=== PATIENT | male | born 1965 | race Caucasian/White ===

== ENCOUNTER 2019-10-11 14:00 | Inpatient (IN) | payer OTHER ==
[~2019-10-11] VITALS: Ht 185.4 cm; Wt 75.0 kg
--- NOTE | ~2019-10-11 | CON ---
[address] [address] CONSULTATION Name: COLTON PEACE Room: [address] IN .R.#: [id number] Admission: 10/11/19 Attend Phys: Sienna Beaver Discharge: Date of : 63 Report #: [id number] THIS REPORT FOR: //name// cc: BRYAN Deal No family physician/PCP BRYAN - No family physician/PCP ~ THIS REPORT FOR: //name// CC: [facility] physician/PCP Satinder Turner DATE OF SERVICE: 10/11/2019 HISTORY OF PRESENT ILLNESS: This is a 54-year-old male patient who was seen by me for what he described as speech difficulty, which started yesterday. He also has pretty significant involuntary movements on the left side. He never had this kind of symptoms before. He is relatively healthy. He does smoke. The movements in the hand is more today than it was yesterday. REVIEW OF SYSTEMS: Indicate that this patient is healthy. In fact, he said he has never been into the hospital. He does smoke. He denies any previous history of stroke. His blood pressure is high here. We do not know what his blood pressure has been in the past. Review of systems is otherwise noncontributory. PAST MEDICAL HISTORY: Negative because the patient says that he does not go to the hospital. FAMILY HISTORY: Noncontributory. SOCIAL HISTORY: He smokes. PHYSICAL EXAMINATION: He is alert, responsive, able to follow simple and complex command. His cranial nerve examination appears unremarkable. Neuromuscular examination is symmetrical. There is no meningeal sign. There is no carotid bruit. Blood pressure is high, but he got some labetalol and it is down now. Cardiac and respiratory examination is unremarkable. LABORATORY DATA: Indicate a white count of 9.2. His GFR is 69. IMPRESSION: This is a pretty unusual patient. It is possible that he has undiagnosed hypertension and this is hypertensive encephalopathy. The thing we need to exclude is that this patient does not have a basilar artery problem. They can present with speech difficulty and unusual symptoms. If he does have a basilar artery problem, we need to address that. RECOMMENDATIONS: [place] [address] CONSULTATION Name: COLTON PEACE Room: [address] IN [facility].#: [id number] Admission: 10/11/19 Attend Phys: Sienna Beaver Discharge: Date of : 63 Report #: [id number] 1. I will go ahead and do a stat CT angio of the head and neck to look for the basilar artery. 2. If that is negative, we will do an MRI of the brain and EEG tomorrow. 3. I will suggest not lowering the blood pressure until the CT angiogram to exclude basilar artery pathology, but once it is excluded and if CT angiogram is normal, then we can try to lower his blood pressure. We will go ahead and give him an aspirin. Thank you very much for this referral, and about 50 minutes of time was spent taking care of this patient today and majority was spent counseling and coordinating his care including reviewing his imaging studies and medical record. By: 1826 [id number] Lewis MD /nt
--- NOTE | ~2019-10-11 | EEG ---
[address] [address] EEG STUDY REPORT Name: COLTON PEACE Room: [address] IN .#: [id number] Admission: 10/11/19 Attend Phys: Sienna Beaver Discharge: Date of : 63 Report #: [id number] THIS REPORT FOR: //name// CC: BRYAN physician/PCP Satinder Turner DATE OF SERVICE: 10/12/2019 This patient is being evaluated for episode of uncontrolled movements on the left side. EEG is being done to evaluate the possibility of seizure. EEG was done by placing the electrode by standard 10-20 system of electrode placement. Both referential and sequential montages were used for recording. Background activity in this patient's EEG is about 10 Hz and 30 microvolt. It is a symmetrical activity. Photic stimulation is unremarkable. The patient became drowsy and that is associated with bilateral slowing. Throughout the record, no active epileptiform activity was noticed. IMPRESSION: This patient's EEG is within normal limits. Thank you very much for this referral. By: 1722 1829Yuval Lewis MD /nt
[2019-10-11 14:05] VITALS: BP 225/118
[2019-10-11 14:45] LABS: ABSOLUTE EOSINOPHILS 0.3 thou/uL (0.0-0.7); ABSOLUTE LYMPHOCYTES 1.8 thou/uL (0.8-5.3); ABSOLUTE MONOCYTES 0.7 thou/uL (0.0-1.2); ABSOLUTE NEUTROPHILS 6.4 thou/uL (1.6-8.1); BASOPHILS 0.2 %; HEMATOCRIT 48.6 % (42.0-52.0); HEMOGLOBIN 17.1 gm/dL (14.0-18.0); LYMPHOCYTES 19.5 %; MCH 32.6 pg (26.0-34.0); MCHC 35.2 g/dL (28.0-37.0); MCV 92.5 fL (80.0-100.0); MONOCYTES 7.6 %; MPV 8.3 fl. (7.2-11.1); NUCLEATED RBCS 0 /100WBC; PLATELET COUNT* 207 thou/uL (150-400); POLYS 69.7 %; RBC 5.25 mil/uL (4.50-6.00); RDW-CV 13.1 % (10.5-14.5); WBC 9.2 thou/uL (4.0-11.0)
[2019-10-11 14:52] LABS: CALCIUM 9.1 mg/dL (8.5-10.1); CREATININE 1.1 mg/dL (0.6-1.3); POTASSIUM 4.3 mmol/L (3.5-5.1); PROTIME 10.8 Seconds (9.20-11.50)
[2019-10-11 14:56] LABS: ALBUMIN 4.1 g/dL (3.4-5.0); TOTAL BILIRUBIN 0.6 mg/dL (<0.1-1.0); TOTAL PROTEIN 7.8 g/dL (6.4-8.2)
[2019-10-11 19:00] VITALS: BP 151/95
[2019-10-11 20:00] VITALS: BP 151/95
[2019-10-11 23:13] LABS: AMP/METHAMP Negative (Negative); BARBITURATES Negative (Negative); BENZODIAZEPINES Negative (Negative); COCAINE Negative (Negative); METHADONE Negative (Negative); OPIATES Negative (Negative); PCP Negative (Negative); THC Negative (Negative)
[2019-10-12] VITALS (7 sets, daily range): BP systolic 149–184; BP diastolic 90–118
[2019-10-12 05:48] LABS: ALBUMIN 3.4 g/dL (3.4-5.0); ALKALINE PHOSPHATASE 64 U/L (46-116); ANION GAP 8 mmol/L (7-16); BUN 8 mg/dL (7-18); CALCIUM 8.4 mg/dL (8.5-10.1); CHLORIDE 104 mmol/L (98-107); CHOLESTEROL 116 mg/dL (<200); CO2 29 mmol/L (21-32); CREATININE 0.9 mg/dL (0.6-1.3); GLUCOSE 101 mg/dL (70-99); HDL CHOLESTEROL 31 mg/dL (>40); LDL CHOLESTEROL 68 mg/dL (<100); POTASSIUM 3.6 mmol/L (3.5-5.1); SGOT 15 U/L (15-37); SGPT 22 U/L (30-65); SODIUM 141 mmol/L (136-145); TC:HDL 3.7 Ratio (Not establshd); TOTAL BILIRUBIN 0.5 mg/dL (<0.1-1.0); TOTAL PROTEIN 6.1 g/dL (6.4-8.2); TRIGLYCERIDE 88 mg/dL (<150); VLDL 18 mg/dL (<40)
[2019-10-12 05:49] LABS: SERUM ASSESSMENT Clear
--- NOTE | 2019-10-12 07:30 | NUR ---
Shift uneventful. Pt aox4, NIH 0, running NSR on telemetry, respirations are even and unlabored on room air. Pt is medically stable at this time.
--- NOTE | 2019-10-12 10:50 | EKG ---
[place] [address] ELECTROCARDIOGRAM REPORT Name: COLTON PEACE Room: [address] ADM IN .R.#: [id number] Admission: 10/11/19 Attend Phys: Satinder Turner Discharge: Date of : 63 Date of Service: 10/11/19 1405 Report #: [id number] THIS REPORT FOR: //name// [facility] ED Test Date: 2019-10-11 Test Time: 14:05:40 Pat Name: MILDREDJACOBLEON PEACE Department: Room: [facility] Gender: M Bottle Capper: TAHMINA : 1965 Requested By: Jared Jones Order Number: [id number] MD: Parveen Dickinson Measurements Intervals [place] Rate: 107 P: 76 VT: 147 QRS: 50 QRSD: 95 T: 45 QT: 319 QTc: 426 Interpretive Statements Sinus tachycardia Left atrial enlargement RSR' in V1 or V2, right VCD or RVH Baseline wander in lead(s) III No previous ECG available for comparison Electronically Signed On 10-12-2019 10:50:15 CDT by Parveen Dickinson [email or web address] <ELECTRONICALLY SIGNED> By: Parveen Dickinson MD, [facility] 10/12/19 1050 1405 1405 Parveen Dickinson MD, [facility] /EPI
--- NOTE | 2019-10-12 11:39 | 2DMMODE ---
[place] [address] 2 D/M-MODE ECHOCARDIOGRAM Name: COLTON PEACE Room: [address] IN .R.#: [id number] Admission: 10/11/19 Attend Phys: Satinder Turner Discharge: Date of : 63 Date of Service: 10/12/19 1139 Report #: [id number] THIS REPORT FOR: cc: FAM - No family physician/PCP FAM - No family physician/PCP Tino Bishop MD [facility] ~ APPROVED REPORT Study performed: 10/12/2019 09:47:50 EXAM: Comprehensive 2D, Doppler, and color-flow Echocardiogram Patient Location: In-Patient BSA: 2.01 HR: 76 bpm BP: 150/90 mmHg Other Information Study Quality: Fair Indications CVA/TIA Echo Enhancing Agent Indication: Rule out Shunt Agent(s) / Amount(s) Used: Agitated Saline cc 2D Dimensions IVSd: 12.02 (7-11mm) LVOT Diam: 18.52 (18-24mm) LVDd: 40.48 mm PWd: 9.91 (7-11mm) Ascending Ao: 33.77 (22-36mm) LVDs: 30.45 (25-40mm) Aortic Root: 26.89 mm Volumes Left Atrial Volume (Systole) LA ESV Index: 18.70 mL/m2 Aortic Valve AoV Peak Miguelito.: 1.11 m/s AO Peak Gr.: 4.96 mmHg LVOT Max P.30 mmHg AO Mean Gr.: 2.92 mmHg LVOT Mean P.98 mmHg LVOT Max V: 1.04 m/s AO V2 VTI: 19.73 cm LVOT Mean V: 0.65 m/[place] [address] 2 D/M-MODE ECHOCARDIOGRAM Name: COLTON PEACE Room: [address] IN ..#: [id number] Admission: 10/11/19 Attend Phys: Satinder Turner Discharge: Date of : 63 Date of Service: 10/12/19 1139 Report #: [id number] ILANA (VTI): 2.49 cm2 LVOT V1 VTI: 18.27 cm Mitral Valve E/A Ratio: 0.80 MV Decel. Time: 244.49 ms MV E Max Miguelito.: 0.62 m/s MV PHT: 70.90 ms MVA (PHT): 3.10 cm2 TDI E/Lateral E': 5.64 E/Medial E': 5.17 Medial E' Miguelito.: 0.12 m/s Lateral E' Miguelito.: 0.11 m/s Pulmonary Valve PV Peak Miguelito.: 0.92 m/s PV Peak Gr.: 3.36 mmHg Tricuspid Valve RAP Estimate: 5.00 mmHg TR Peak Gr.: 20.94 mmHg RVSP: 25.94 mmHg PA Pressure: 25.94 mmHg Left Ventricle The left ventricle is normal size. There is normal LV segmental wall motion. There is normal left ventricular wall thickness. Left ventricular systolic function is normal. LVEF is 55-60%. Grade I - abnormal relaxation pattern. Right Ventricle The right ventricle is normal size. The right ventricular systolic function is normal. Atria The left atrium size is normal. Interatrial septum not well visualized. Injection of bubbles documented no interatrial shunt. The right atrium size is normal. Aortic Valve The aortic valve is normal in structure. No aortic regurgitation is present. There is no aortic valvular stenosis. Mitral Valve The mitral valve is normal in structure. There is no mitral valve regurgitation noted. No evidence of mitral valve stenosis[place] [address] 2 D/M-MODE ECHOCARDIOGRAM Name: COLTON PEACE Room: [address] IN [facility]#: [id number] Admission: 10/11/19 Attend Phys: Satinder Turner Discharge: Date of : 63 Date of Service: 10/12/19 1139 Report #: [id number] The tricuspid valve is normal in structure. Trace tricuspid regurgitation. No pulmonary hypertension. Pulmonic Valve The pulmonary valve is normal in structure. There is no pulmonic valvular regurgitation. Great Vessels The aortic root is normal in size. IVC is not well visualized. Pericardium There is no pericardial effusion. <Conclusion> The left ventricle is normal size. There is normal left ventricular wall thickness. Left ventricular systolic function is normal. LVEF is 55-60%. Grade I - abnormal relaxation pattern. Interatrial septum not well visualized. Injection of bubbles documented no interatrial shunt. Trace tricuspid regurgitation. No pulmonary hypertension. <ELECTRONICALLY SIGNED> By: Tino Bishop MD, FACC 10/12/19 1139 1139 1139 Tino Bishop MD, FACC /INF
--- NOTE | 2019-10-12 13:11 | NUR ---
Pt is A&O. Resides at home alone. Active and independent. No DME. No hx of HH or SNF. Per rehab, Pt is too high level for acute rehab. Goal is home at la. No needs
--- NOTE | 2019-10-12 20:10 | NUR ---
PT. AOX4, BP HIGH, CONSULTED WITH DR. OCONNOR, INSTRUCTED TO MAINATIN AT UPTO 225/125. DENIES PAIN, LUNCH ORDERED PER DAUGHTER, PT IN BED, IN PLEASANT AFFECT AND IN NO DISTRESS AT SHIFT CHANGE. CALL LIGHT AND PERSONAL BELONGINGS PLACED WITHIN REACH.
[2019-10-13] VITALS (7 sets, daily range): BP systolic 160–181; BP diastolic 103–115
[2019-10-13 02:06] LABS: GLYCOHEMOGLOBIN (HGB A1C) 5.3 % (4.8-5.6)
--- NOTE | 2019-10-13 07:59 | NUR ---
ASSUMED PT CARE AT APPROX 1930, PT IS AWAKE AND ORIENTED X4. EQUIPMENT SERVICE TECHNICIAN IS TRACING SR. ASSESSMENT DONE AND CHARTED. NO ACUTE CHANGES OVERNIGHT. NIHSS-O. PT DENIES PAIN/DISCOMFORT. PT IS ABLE TO SLEEP MOST OF THE NIGHT. CALL LIGHT WITHIN REACH. HOURLY ROUNDING DONE FOR PT SAFETY.
--- NOTE | 2019-10-13 11:20 | NUR ---
Cardiac Rehab Stroke Education. Educated receptive patient and friend on types of strokes, signs and symptoms of stoke, when to call 91, personal risk factor reduction and smoking cessation. States he is thinking about stopping smoking but "really enjoys it". Has quit in the past using the [place] method. States he would probably use this method again. Both state understanding of education and all questions answered to their satisfaction.
--- NOTE | 2019-10-13 12:40 | NUR ---
ASSUMED PT CARE REPORT RECEIVED FROM NURSE. PT IS AOX4. ON RA. VS TAKEN. HIGH BP BUT PER DRMiguel PATIENT NEEDS A HIGH BP PALLAVI MAINTAINED DUE TO MRI RESULT. SEE CHART. AMMEDS GIVEN. PLANNING DISCHARGE. CALL LIGHT AT REACH. WILL CONTINUE TO MONITOR PT.
[2019-10-13] MEDS ORDERED: ASPIRIN325 PO (13:14)
[2019-10-13] MEDS ORDERED: LIPITOR40 MG PO (13:16)
--- NOTE | 2019-10-13 14:07 | NUR ---
DISCHARGE ORDERED. NEUROLOGY DR SAYS HE WILL BE THERE IN A FEW MINUTES TO SEE PT BEFORE DISCHARGE
[2019-10-13] MEDS ORDERED: ZESTRIL40 MG PO (16:30)
--- NOTE | 2019-10-13 16:37 | NUR ---
lisinopril given to pt to try to decrease bp . see chart for bp measurement. per neuro pt;s bp is to high for disharge. thiw was communicated to hospitalist who ordered a dose of lisinopril onetime here in hospital and daily once pt get discharged. lisinopril script was called in to pt's pharmacy. outpatient therapy ordered. order was faxed [facility] ([phone]).
--- NOTE | 2019-10-13 16:43 | NUR ---
lisinopril script called to pharmacy
--- NOTE | 2019-10-13 17:22 | NUR ---
iv removed. heart monitor retrieved. pt left unit at 1700. ambulates with nursing staff and related adult.
== END 2019-10-13 17:00 | disposition home or self-care (01) | DRG 65 ==
LOC: M.ERS 14:00 → M.2W 16:13 → M.TBA-ER 16:13 → M.2W 19:15
PROVIDERS: Emergency Medicine; ADMIT Internal Medicine; ATTEND Internal Medicine
DX: I63.9 Cerebral infarction, unspecified (principal); I67.4 Hypertensive encephalopathy; I16.1 Hypertensive emergency; I10 Essential (primary) hypertension; F17.210 Nicotine dependence, cigarettes, uncomplicated; Z79.899 Other long term (current) drug therapy; Z88.0 Allergy status to penicillin; R56.9 Unspecified convulsions